=== PATIENT | female | born 1955 | race Caucasian/White ===

== ENCOUNTER 2022-09-22 11:21 | Outpatient (CLI) | payer MEDICARE, SELFPAY ==
--- NOTE | 2022-09-22 11:30 | CRLHL7_ITS ---
For Patients: As a result of the Century Cures Act, medical imaging exams and procedure reports are released immediately into your electronic medical record. You may view this report before your referring provider. If you have questions, please contact your health care provider. BILATERAL SCREENING MAMMOGRAM WITH COMPUTER-AIDED DETECTION AND TOMOSYNTHESIS TECHNIQUE: CC and MLO views were obtained. These mammographic images have been obtained using full-field digital technique. These mammographic images were interpreted with the benefit of computer-aided detection. Breast Tomosynthesis was used in this interpretation. COMPARISON FILM: 06/27/20, 04/24/19, 06/21/12. FINDINGS: There are scattered areas of fibroglandular density IMPRESSION: There is no radiographic evidence for malignancy. ASSESSMENT: BI-RADS Category 1: Negative RECOMMENDATION: Routine screening mammogram in 1 year. A lay language report of this examination will be provided to the patient. Rodolfo Cardenas M.D. Diagnostic Radiologist [email or web address] SUSANA/Dictated by: Rodolfo Cardenas MD @ 09/22/2022 12:59:00 PM (Electronically Signed)
== END 2022-09-22 11:22 | disposition home or self-care (01) ==
LOC: MAMMO 11:28
PROVIDERS: PCP Family Medicine; Visit Provider Obstetrics & Gynecology
DX: Z12.31 Encounter for screening mammogram for malignant neoplasm of breast (principal)
CPT/HCPCS: 77063; 77067

== ENCOUNTER 2022-11-05 13:40 | Outpatient (CLI) | payer MEDICARE, SELFPAY ==
--- NOTE | 2022-11-05 13:45 | MR_ITS ---
[address] [address] Phone:?[phone] Fax:?[phone] Referring Physician Information: Josefa Farley [address] [facility] [address] Phone:?[phone] Fax:?[phone] Patient:Jessica Eller D.O.B:?1955 Sex:?Female Phone:? [facility] MRN:?[id number] Exam Date:?11/05/2022 ? EXAM: MRI of the LEFT KNEE, without contrast CLINICAL HISTORY: Left knee pain. Injury in August 2022. Evaluate medial compartment and patellar tendon. COMPARISONS: Plain radiographs 10/26/2022. TECHNICAL: MR sequences of the left knee: sagittals: PD, PDFS coronals: PD, T2FS axials: PD, PDFS CONTRAST: None SEDATION: None FINDINGS: Bones: No fracture, bone marrow contusion, or other suspicious bone marrow signal abnormality. Patellofemoral joint: Cartilage: 3 x 3 mm focus of full-thickness chondromalacia over the median patellar ridge-medial patellar facet junction with slight subjacent degenerative subchondral cystic changes. 5 x 5 mm focus of full-thickness chondromalacia over the inferior portion of the trochlear groove with mild subjacent degenerative subchondral cystic changes. 1.0 x 1.0 cm area of grade I chondromalacia over the median patellar ridge-lateral patellar facet junction. Retinacula: The medial and lateral retinacula are intact. Fat pads: The infrapatellar, quadriceps, and prefemoral fat pads are unremarkable. Knee joint: Effusion: Physiologic amount of joint fluid. Popliteal cyst: None. Intra-articular bodies: None. Posteromedial corner: The semimembranosus and pes anserine tendons are intact. Medial compartment: Medial meniscus: 1.0 cm in length inferiorly surfacing oblique tear of the body through body/posterior horn junction of the medial meniscus best seen on coronal images 17 through 20. Cartilage: Single several slitlike full-thickness chondral fissure over the lateral weightbearing portion of the medial femoral condyle. Lateral compartment: Lateral meniscus: Free edge fraying versus ill-defined free edge tear of the body of the lateral meniscus measuring 5 mm in length best seen on coronal images 17 and 18. No unstable lateral meniscal tear is seen. Cartilage: Intact. Ligaments: Anterior cruciate ligament: Intact. Posterior cruciate ligament: Intact. Medial collateral ligament: Intact. Posterior oblique ligament: Intact. Fibular collateral ligament: Intact. Posterolateral corner: The distal biceps femoris tendon, iliotibial band, popliteus tendon, popliteus muscle, popliteofibular ligament, and arcuate ligament are intact. Extensor mechanism: Patellar tendon: Intact. Quadriceps tendon: Intact. IMPRESSION: 1. 1.0 cm in length inferiorly surfacing oblique tear of the body through body/posterior horn junction of the medial meniscus. 2. Free edge fraying versus ill-defined free edge tear of the body of the lateral meniscus measuring 5 mm in length. No unstable lateral meniscal tear. 3. 3 x 3 mm focus of full-thickness chondromalacia over the median patellar ridge-medial patellar facet junction with slight subjacent degenerative subchondral cystic changes, 5 x 5 mm focus of full-thickness chondromalacia over the inferior portion of the trochlear groove with mild subjacent degenerative subchondral cystic changes, and a 1.0 x 1.0 cm area of grade I chondromalacia over the median patellar ridge-lateral patellar facet junction. 4. Single subtle slitlike full-thickness chondral fissures over the lateral weightbearing portion of the medial femoral condyle. 5. No ligamentous injury of the left knee. RCB Electronically signed on 11/05/2022 4:25:00 PM by Nando Gay M.D.
== END 2022-11-05 13:41 | disposition home or self-care (01) ==
LOC: MRI 13:41
PROVIDERS: PCP Family Medicine; Visit Provider Physician Assistant
DX: M25.562 Pain in left knee (principal); S83.242A Other tear of medial meniscus, current injury, left knee, initial encounter; M94.262 Chondromalacia, left knee; S89.92XA Unspecified injury of left lower leg, initial encounter
CPT/HCPCS: 73721

== ENCOUNTER 2022-11-13 08:03 | Outpatient (CLI) | payer MEDICARE, SELFPAY | END 2022-11-13 08:04 | disposition home or self-care (01) | LOC: LONREF 08:08 | PROVIDERS: PCP Family Medicine; Visit Provider Family Medicine | DX: Z01.818 Encounter for other preprocedural examination (principal) | CPT/HCPCS: 80048 ==

== ENCOUNTER 2022-11-17 06:50 | Day surgery (SDC) | payer MEDICARE, SELFPAY ==
[2022-11-17] VITALS (10 sets, daily range): BP systolic 98–122; BP diastolic 60–76; PULSE 57–77; RESP 12–16; TEMP 36.3–36.8; O2SAT 95–99; BMI 35.2
--- OUTSIDE RECORDS SUMMARY | 2022-11-17 06:53 | XMS_ITS | Continuity of Care Document ---
Author Name Unknown Organization [facility] Address [address] [address] [place] [address] Phone Care Team Providers Care Volunteer Services Supervisor Name Role Phone Rodolfo Murray MD Unavailable Unavailable Procedures Procedure Date Colonoscopy Flex; Dx (mar Pro) Advance Directives Directive Yes / No Effective Date File Name No Information Encounters Encounter Description Practice Location Reason(s) For Visit Diagnoses Date Provider Providers Copied on Encounter [facility], [address] [address], [place], [place], [id number], [place] tel:[phone] No Information Trevor Reynolds. [address] [place] [address], [facility], [place], [place], [id number], [place]. tel:[phone] Family History Family Member Type Diagnosis Age At Onset No Information Payers Payer name Insurance type Covered democrat ID Authoriza tion(s) [facility] [id number] Social History Type Description Quantity Date Captured Comments Sex Female Smoking Status No Information Chief Complaint And Reason For Visit No Information Reason For Referral Reason For Referral No Information Plan Of Treatment Date Type Action Status No Information History Of Present Illness Encounter Date Complaint History Of Prese nt Illness No Information Functional Status Date Functional Assessmen t No Information Instructions Date Instruction Additional Infor mation No Information Assessments Type Assessment Date No Information Patient Care Teams Name Effective Dates (start - stop) Status Members No Information
[2022-11-17] MEDS: LACTATED RINGERS 1000 ML 1,000 ML 100 ML IV (08:15)
[2022-11-17] MEDS: CEFAZOLIN 2 GM INJ IVP (09:47)
[2022-11-17] MEDS: BUPIVACAINE 0.25% 30 ML INJECTION (10:33)
--- NOTE | 2022-11-17 10:43 | W.ANESCHARGE ---
Anesthesia Charges Start Date/Time Anesthesia Start Date: 11/17/22 Anesthesia Start Time: 09:42 Stop Date/Time Anesthesia Stop Date: 11/17/22 Anesthesia Stop Time: 10:45
--- NOTE | 2022-11-17 10:44 | P.ORPRC_ITS ---
Procedure Note Date of procedure: 11/17/22 Procedure: PREOPERATIVE DIAGNOSIS: Left knee medial meniscus tear, lateral meniscus tearing POSTOPERATIVE DIAGNOSIS: Left knee medial meniscus tear, discoid lateral meniscus NAME OF OPERATION: Left knee arthroscopic partial medial meniscectomy, saucerization of the discoid lateral meniscus SURGEON: Deyvi Perera MD PERSONAL CLOTHING LAUNDRY AIDE: MILENA Berg ANESTHESIA: Spinal ESTIMATED BLOOD LOSS: 0 mL COMPLICATIONS: None SPECIMENS: None DRAINS: None PREOPERATIVE ANTIBIOTICS: Ancef 2 gram INDICATIONS: The patient is a 67-year-old with a history of left knee medial pain. MRI scan is consistent with a medial meniscus tear. Despite appropriate nonoperative management, including activity modification, antiinflammatories, [id number] pain medication, bracing, physical therapy, and injections they continue to have pain and disability. Operative intervention was offered. The risks, benefits and expected outcomes were discussed in detail. These included but were not limited to: Infection, bleeding, injury to blood vessel or nerve, venous thromboembolism. All questions were answered to their satisfaction. PROCEDURE: Spinal anesthesia was administered. The patient was placed supine on the operating room table. The left lower extremity was prepped and draped in the usual sterile fashion. The limb was exsanguinated with the Demetrius bandage. The pneumatic tourniquet was inflated to 300 mmHg. A standard anterolateral portal was established. The arthroscope was introduced. The working portal was established anteromedially. Diagnostic arthroscopy was performed with findings as follows: The suprapatellar pouch is normal. Articular surface on the patella grade 2 change. Articular surface on the trochlea grade 2/3 change. The medial gutter is normal. The medial compartment shows diffuse grade 3 change on the medial femoral condyle, grade 2 change on the medial tibial plateau. The medial meniscus has undersurface degenerative tearing of the midbody, into the posterior horn. The notch shows the ACL to be intact. The lateral compartment shows normal articular cartilage on the lateral femoral condyle and lateral tibial plateau. The lateral meniscus is a discoid variant, covering nearly the entirety of the plateau. The lateral gutter is normal. The undersurface of the midbody and posterior horn of the medial meniscus was debrided with the shaver through both portals, taken to a stable base. Unstable chondral flaps on the medial femoral condyle for were debrided with the shaver. The discoid lateral meniscus was saucerized with a basket and shaver through both portals. Arthroscopic instruments were removed, the portal sites were Steri-Stripped closed, the knee was infiltrated with 30 mL of 0.25% Marcaine without epinephrine. A dry dressing was applied, the tourniquet was released. Sponge and needle counts were correct x 2. The patient tolerated the procedure well. There were no apparent complications. They were carefully transferred to the hospital bed and taken to the postanesthesia care unit in satisfactory condition. PLAN: The patient will be discharged to home. They may weightbear as tolerates. Range of motion will be unrestricted. They will follow up in the office next week for a wound check.
--- NOTE | 2022-11-17 10:47 | W.ANESCHARGE ---
Anesthesia Charges Start Date/Time Anesthesia Start Date: 11/17/22 Anesthesia Start Time: 09:42 Stop Date/Time Anesthesia Stop Date: 11/17/22 Anesthesia Stop Time: 10:45
--- NOTE | 2022-11-17 11:19 | SUR.PHASEI ---
patient met discharge criteria per anesthesia
== END 2022-11-17 12:08 | disposition home or self-care (01) ==
PROVIDERS: PCP Family Medicine; Visit Provider Orthopaedic Surgery
PROC: (CPT 29870; principal; 2022-11-17 09:45)
DX: M23.222 Derangement of posterior horn of medial meniscus due to old tear or injury, left knee (principal); M23.262 Derangement of other lateral meniscus due to old tear or injury, left knee
CPT/HCPCS: 29880; 01400; J0690; J1100; J2250; J2405; J2704; J3010; J3490; J7120